=== PATIENT | male | born 1995 | race Caucasian/White ===

== ENCOUNTER 2018-08-22 10:16 | Emergency (ER) | payer MEDICAID ==
[~2018-08-22] VITALS: Ht 180.3 cm; Wt 95.3 kg
[~2018-08-22 10:16] MED LIST: ACET-8386 PO
[2018-08-22 10:33] VITALS: BP 120/80
--- NOTE | 2018-08-22 10:35 | NUR ---
PT AMBULATED TO E
--- NOTE | 2018-08-22 10:37 | NUR ---
PATIENT PRESENTS TO ED WITH C/O LEFT ANKLE PAIN SWELLING TENDER TO APPLY WEIGHT S/P MECHANICAL FALL YESTERDAY +2 PEDAL PULSE . DENIES N/V/D; SKIN IS PINK/WARM/DRY; AAOX4 LUNGS CLEAR BL; HR EVEN AND REGULAR; PT DENIES ANY FEVER, CP, SOB, OR COUGH AT THIS TIME; PATIENT STATES PAIN OF 8/10 AT THIS TIME; VSS; PATIENT POSITIONED FOR COMFORT; HOB ELEVATED; BEDRAILS UP X2; BED DOWN. ER MD MADE AWARE OF PT STATUS.
--- NOTE | 2018-08-22 11:15 | NUR ---
PT TO RADIOLOGY VIA
--- NOTE | 2018-08-22 11:21 | NUR ---
PT RETURNED FROM RADIOLOGY
[2018-08-22 11:55] VITALS: BP 129/82
== END 2018-08-22 11:54 | disposition home or self-care (01) ==
LOC: MED 10:16
DX: S93.402A Sprain of unspecified ligament of left ankle, initial encounter (principal); Z79.1 Long term (current) use of non-steroidal anti-inflammatories (NSAID); W01.0XXA Fall on same level from slipping, tripping and stumbling without subsequent striking against object, initial encounter; Y93.89 Activity, other specified; Y92.89 Other specified places as the place of occurrence of the external cause; Y99.8 Other external cause status
CPT/HCPCS: 73610; 99283